=== PATIENT | female | born 1990 | race Caucasian/White ===

== ENCOUNTER 2016-12-20 17:08 | Emergency (ER) | payer OTHER ==
[~2016-12-20] VITALS: Ht 165.1 cm; Wt 60.0 kg
[2016-12-20 17:13] VITALS: BP 135/92; PULSE 81; RESP 16; TEMP 98; O2SAT 100
[2016-12-20 17:29] LABS: BLOOD, URINE TRACE (NEG); GLUCOSE,URINE NEG (NEG); KETONE, URINE 40 mg/dL (NEG); NITRITE,URINE NEG (NEG)
[2016-12-20 17:33] LABS: METHOD OF COLLECTION CLEAN CATCH; RBC, URINE 0-3 /hpf (0-3); SQUAMOUS EPITHELIAL CELL URINE 0-5 /hpf (0-5); URINE COLOR YELLOW (YELLW/STRAW)
[2016-12-20 17:34] LABS: COMMENT (UR) CULT NOT INDICATED; CULTURE IF INDICATED CULT NOT INDICATED
--- NOTE | 2016-12-20 18:36 | PD ---
HPI Chief Complaint: Related Problem Time Seen by Provider: 17:59 Travel History International Travel<30 days: No Contact w/Intl Traveler<30days: No Traveled to known affect area: No History of Present Illness HPI 24yo F with PMH of asthma presents to the ED with c/o vaginal spotting since last night. Pt is 6weeks 5 day as per LMP of 11/03/16 and has positive home test 5 days ago. States she has intermittent cramps but denies any abdominal pain. States she feels intermittent tugging sensation on right side but not really pain. Denies any fever, chest pain, sob, n/v, back pain, urinary complaints. Has whitish vaginal discharge. PFSH Past Medical History Asthma: Yes ?: LMP: 11/03/16 : 1 Para: 0 Miscarriage: 0 : 0 Past Surgical History Surgical History: No Previous Surgery Social History Alcohol Use: Yes (SOCIALLY) Tobacco Use: No Substance Use: No Allergies-Medications (Allergen,Severity, Reaction): Coded Allergies: No Known Allergies (Unverified , 12/20/16) Reported Meds & Prescriptions Reported Meds & Active Scripts Active No Active Prescriptions or Reported Medications Review of Systems Except as stated in HPI: all other systems reviewed are Neg Physical Exam Narrative GENERAL: 26yo F not in distress. SKIN: Warm and dry. HEAD: Atraumatic. Normocephalic. NECK: Trachea midline. No JVD. CARDIOVASCULAR: Regular rate and rhythm. No murmur appreciated. RESPIRATORY: No accessory muscle use. Clear to auscultation. Breath sounds equal bilaterally. GASTROINTESTINAL: Abdomen soft, non-tender, nondistended. No rebound tenderness or guarding. PELVIC: BACK: No CVA tenderness bilaterally. MUSCULOSKELETAL: No obvious deformities. No clubbing. No cyanosis. No edema. NEUROLOGICAL: Awake and alert. No obvious cranial nerve deficits. Motor grossly within normal limits. Normal speech. PSYCHIATRIC: Appropriate mood and affect; insight and judgment normal. Data Data Last Documented VS Vital Signs Date Time Temp Pulse Resp B/P Pulse Ox O2 Delivery O2 Flow Rate FiO2 12/20/16 17:13 98.0 81 16 135/92 100 Orders Urinalysis - C+S If Indicated (12/20/16 17:20) Beta Hcg (Quant/Titer) (12/20/16 18:06) Complete Blood Count With Diff (3/11/17 18:06) Basic Metabolic Panel (Bmp) (12/20/16 18:06) Gc And Chlamydia Pcr (12/20/16 18:06) Wet Prep Profile (12/20/16 18:06) Type And Screen (12/20/16 18:13) Prothrombin Time / Inr (Pt) (12/20/16 18:13) Act Partial Throm Time (Ptt) (12/20/16 18:13) Ed Poc Ultrasound (12/20/16 ) Us Pelvis (Ques Pr/Ect)W Trans (12/20/16 ) Labs Laboratory Tests Test 12/20/16 12/20/16 12/20/16 17:15 18:48 19:20 Urine Collection Type CLEAN CATCH Urine Color YELLOW Urine Turbidity CLEAR Urine pH 6.0 Urine Specific [place] 1.015 Urine Protein NEG mg/dL Urine Glucose (UA) NEG mg/dL Urine Ketones 40 mg/dL Urine Occult Blood TRACE Urine Nitrite NEG Urine Bilirubin NEG Urine Leukocyte Esterase NEG Urine RBC 0-3 /hpf Urine Squamous Epithelial 0-5 /hpf Cells Microscopic Urinalysis Comment CULT NOT INDICATED White Blood Count 8.8 TH/MM3 Red Blood Count 3.91 MIL/MM3 Hemoglobin 12.2 GM/DL Hematocrit 35.8 % Mean Corpuscular Volume 91.7 FL Mean Corpuscular Hemoglobin 31.3 PG Mean Corpuscular Hemoglobin 34.1 % Concent Red Cell Distribution Width 13.2 % Platelet Count 220 TH/MM3 Mean Platelet Volume 8.7 FL Neutrophils (%) (Auto) 68.0 % Lymphocytes (%) (Auto) 19.9 % Monocytes (%) (Auto) 8.4 % Eosinophils (%) (Auto) 1.2 % Basophils (%) (Auto) 2.5 % Neutrophils # (Auto) 6.1 TH/MM3 Lymphocytes # (Auto) 1.7 TH/MM3 Monocytes # (Auto) 0.7 TH/MM3 Eosinophils # (Auto) 0.1 TH/MM3 Basophils # (Auto) 0.2 TH/MM3 CBC Comment DIFF FINAL Differential Comment Prothrombin Time 10.7 SEC Prothromb Time International 1.0 RATIO Ratio Activated Partial 22.0 SEC Thromboplast Time Sodium Level 140 MEQ/L Potassium Level 3.8 MEQ/L Chloride Level 105 MEQ/L Carbon Dioxide Level 21.1 MEQ/L Anion Gap 14 MEQ/L Blood Urea Nitrogen 9 MG/DL Creatinine 0.58 MG/DL Estimat Glomerular Filtration 124 ML/MIN Rate Random Glucose 89 MG/DL Calcium Level 8.3 MG/DL Human Chorionic Gonadotropin, 3828 MIU/ML Quant Blood Type A POSITIVE Antibody Screen NEGATIVE Blood Bank Comment Clue Cells (Wet Prep) NONE SEEN Vaginal Trichomonas (Wet Prep) NONE SEEN Vaginal Yeast (Wet Prep) NONE SEEN MDM Medical Decision Making Medical Screen Exam Complete: Yes Emergency Medical Condition: Yes Interpretation(s) Laboratory Tests Test 12/20/16 12/20/16 12/20/16 17:15 18:48 19:20 Urine Collection Type CLEAN CATCH Urine Color YELLOW (YELLW/STRAW) Urine Turbidity CLEAR (CLEAR) Urine pH 6.0 (5.0-8.5) Urine Specific [place] 1.015 (1.002-1.035) Urine Protein NEG mg/dL (NEG-TRACE) Urine Glucose (UA) NEG mg/dL (NEG) Urine Ketones 40 mg/dL (NEG) Urine Occult Blood TRACE (NEG) Urine Nitrite NEG (NEG) Urine Bilirubin NEG (NEG) Urine Leukocyte Esterase NEG (NEG) Urine RBC 0-3 /hpf (0-3) Urine Squamous Epithelial 0-5 /hpf (0-5) Cells Microscopic Urinalysis Comment CULT NOT INDICATED White Blood Count 8.8 TH/MM3 (4.0-11.0) Red Blood Count 3.91 MIL/MM3 (4.00-5.30) Hemoglobin 12.2 GM/DL (11.6-15.3) Hematocrit 35.8 % (35.0-46.0) Mean Corpuscular Volume 91.7 FL (80.0-100.0) Mean Corpuscular Hemoglobin 31.3 PG (27.0-34.0) Mean Corpuscular Hemoglobin 34.1 % Concent (32.0-36.0) Red Cell Distribution Width 13.2 % (11.6-17.2) Platelet Count 220 TH/MM3 (150-450) Mean Platelet Volume 8.7 FL (7.0-11.0) Neutrophils (%) (Auto) 68.0 % (16.0-70.0) Lymphocytes (%) (Auto) 19.9 % (9.0-44.0) Monocytes (%) (Auto) 8.4 % (0.0-8.0) Eosinophils (%) (Auto) 1.2 % (0.0-4.0) Basophils (%) (Auto) 2.5 % (0.0-2.0) Neutrophils # (Auto) 6.1 TH/MM3 (1.8-7.7) Lymphocytes # (Auto) 1.7 TH/MM3 (1.0-4.8) Monocytes # (Auto) 0.7 TH/MM3 (0-0.9) Eosinophils # (Auto) 0.1 TH/MM3 (0-0.4) Basophils # (Auto) 0.2 TH/MM3 (0-0.2) CBC Comment DIFF FINAL Differential Comment Prothrombin Time 10.7 SEC (9.8-11.6) Prothromb Time International 1.0 RATIO Ratio Activated Partial 22.0 SEC Thromboplast Time (24.3-30.1) Sodium Level 140 MEQ/L (136-145) Potassium Level 3.8 MEQ/L (3.5-5.1) Chloride Level 105 MEQ/L (98-107) Carbon Dioxide Level 21.1 MEQ/L (21.0-32.0) Anion Gap 14 MEQ/L (5-15) Blood Urea Nitrogen 9 MG/DL (7-18) Creatinine 0.58 MG/DL (0.50-1.00) Estimat Glomerular Filtration 124 ML/MIN Rate (>89) Random Glucose 89 MG/DL (74-106) Calcium Level 8.3 MG/DL (8.5-10.1) Human Chorionic Gonadotropin, 3828 MIU/ML Quant (0-5) Blood Type A POSITIVE Antibody Screen NEGATIVE Blood Bank Comment Clue Cells (Wet Prep) NONE SEEN (NONE) Vaginal Trichomonas (Wet Prep) NONE SEEN (NONE) Vaginal Yeast (Wet Prep) NONE SEEN (NONE) Differential Diagnosis Threatened vs. subchorionic hemorrhage vs. ectopic Narrative Course 26yo F with vaginal bleeding and early . Labs reviewed, no leukocytosis. H/H stable. [facility] [id number]. I did a bedside transabdominal US and could not see a clear gestational sac so official transvaginal US was ordered. US showed no IUP. There is a potentially early ectopic of right ovary. [facility] surveillance and follow up ultrasound recommended. Discussed with Dr. Jonathan Horner, OB hospitalist and he states that she can follow up with him in 48 hours. Will write prescription for bHCG in 2 days. Blood type is A+. UA trace blood. Culture not indicated. Return precautions given. Diagnosis Primary Impression: Ectopic Qualified Code: O00.20 - Ovarian without intrauterine Referrals: Jonathan Horner MD 2 days Possible early ectopic, need repeat bHCG and US and follow up with OBGYN in 48 hours. Patient Instructions: General Instructions Departure Forms: Tests/Procedures Additional Instructions: Please follow up with Dr. Horner in 48 hours. Please go to lab for repeat bHCG in 2 days. Return to the ED if you have any abdominal pain, vomiting or any other concerning symptoms. Med/Other Pt SpecificInfo: Prescription(s) given Scripts Acetaminophen (Acetaminophen Extra Strength)500 Mg [id number] Mg PO Q6H PRN (PAIN SCALE 1 TO 4) #20 TAB Ref 0 Prov:Stefania Barba DO 12/20/16 Disposition: 01 DISCHARGE HOME Condition: Stable Stefania Barba DO Dec 20, 2016 18:36
[2016-12-20 19:05] LABS: AUTOMATED NEUTROPHIL # 6.1 TH/MM3 (1.8-7.7); BASOPHIL # 0.2 TH/MM3 (0-0.2); BASOPHIL % 2.5 % (0.0-2.0); EOSINOPHIL # 0.1 TH/MM3 (0-0.4); EOSINOPHIL % 1.2 % (0.0-4.0); HEMATOCRIT 35.8 % (35.0-46.0); HEMO FLAGS DIFF FINAL; LYMPH % 19.9 % (9.0-44.0); LYMPHOCYTE # 1.7 TH/MM3 (1.0-4.8); MEAN CELL VOLUME 91.7 FL (80.0-100.0); MEAN CORPUSCULAR HEMOGLOBIN 31.3 PG (27.0-34.0); MEAN CORPUSCULAR HGB CONC 34.1 % (32.0-36.0); MONO % 8.4 % (0.0-8.0); PLATELET COUNT 220 TH/MM3 (150-450); RED BLOOD COUNT 3.91 MIL/MM3 (4.00-5.30); RED CELL DISTRIBUTION WIDTH 13.2 % (11.6-17.2); WHITE BLOOD COUNT 8.8 TH/MM3 (4.0-11.0)
[2016-12-20 19:15] LABS: BICARBONATE 21.1 MEQ/L (21.0-32.0)
[2016-12-20 19:17] LABS: PROTHROMBIN TIME - PATIENT 10.7 SEC (9.8-11.6)
[2016-12-20 19:24] LABS: POTASSIUM 3.8 MEQ/L (3.5-5.1)
--- NOTE | 2016-12-20 21:49 | RADHPO ---
EXAM DATE/TIME: 12/20/2016 20:05 [place] COMPARISON: No previous studies available for comparison. INDICATIONS : Vaginal spotting during . LAB(S): Beta-hC MEDICAL HISTORY : . Asthma. SURGICAL HISTORY : None. ENCOUNTER: Initial ACUITY: 1 day PAIN SCORE: 1/10 LOCATION: Right pelvis MEASUREMENTS: UTERUS: 7.8 x 5.4 x 5.8 cm ENDOMETRIAL STRIPE: 16 mm RIGHT OVARY: 3.6 x 2.6 x 3.1 cm LEFT OVARY: 3.4 x 1.6 x 3.4 cm FINDINGS: Nothing typical of a gestational sac, yolk sac or pole of the uterus. Multiple scattered sub-5 mm submucosal cysts are seen in the endometrium. The endometrium is thickened. Small fluid collection seen in the right ovary measures about 7.5 mm in size and could be an early ge stational sac. There is a internal reflection suggesting a possible yolk sac. However, no perceptible pole. There is a complex 24 mm mass of the right ovary as well that is probably a corpus lutea l cyst. Subcentimeter cysts are seen of the left ovary. Small free fluid containing floating debris seen in the pelvic cul-de-sac. CONCLUSION: 1. No IUP seen. There is a potential early ectopic of the right ovary; the appearance sugge sts a small gestational sac with yolk sac but I don't see a pole.. Beta-hCG surveillance and fo llowup ultrasound recommended. 2. Probably a corpus luteal cyst of the right ovary as well. 3. Small free fluid and debris in the pelvic cul-de-sac. Jonathan Medrano MD on December 20, 2016 at 21:42 Board Certified Radiologist. This report was verified electronically.
[2016-12-20 22:01] VITALS: BP 125/66; PULSE 94; RESP 16; O2SAT 100
[2016-12-20] MEDS ORDERED: ACET500T36 PO (22:16)
[2016-12-20] MEDS ORDERED: ACETAMINOPHEN 325 MG TAB PO ONE (22:30)
[2016-12-21 04:05] LABS: CHLAMYDIA PCR NOT DETECTED (NOT DETECT); NEISSERIA PCR NOT DETECTED (NOT DETECT)
== END 2016-12-20 22:39 | disposition home or self-care (01) ==
LOC: PHED 17:08
DX: O00.20 Ovarian pregnancy without intrauterine pregnancy (principal); Z3A.01 Less than 8 weeks gestation of pregnancy
CPT/HCPCS: 76700; 76817; 80048; 81001; 84702; 85025; 85610; 85730; 86850; 86900; 86901; 87210; 87491; 87591

== ENCOUNTER 2016-12-22 15:49 | Emergency (ER) | payer OTHER ==
[~2016-12-22] VITALS: Ht 165.1 cm; Wt 60.0 kg
[~2016-12-22 15:49] MED LIST: ACET500T36 PO
[2016-12-22 15:51] VITALS: BP 120/78; PULSE 79; RESP 18; TEMP 97.9; O2SAT 98
--- NOTE | 2016-12-22 18:23 | PD ---
HPI Chief Complaint: Online Banking Specialist Problem/Complaint Time Seen by Provider: 18:20 Travel History International Travel<30 days: No Contact w/Intl Traveler<30days: No Traveled to known affect area: No History of Present Illness HPI Patient is a 26-year-old female presenting to the emergency department for an injection of methotrexate. Patient was seen and evaluated in the emergency department on 12/20/16 and was diagnosed with a suspected ectopic . She presented to her DEGREE CLERK this morning Dr. Hendrickson who confirmed the was ectopic to an additional ultrasound as well as a pelvic exam. He wrote her a prescription to bring to emergency department for methotrexate injection. Patient denies any abdominal pain currently. She states that she had some abdominal pain last night. PFSH Past Medical History Asthma: Yes Respiratory: Yes (ASTHMA) ?: Not : 1 Para: 0 Miscarriage: 0 : 0 Social History Alcohol Use: Yes (SOCIALLY) Tobacco Use: No Substance Use: No Allergies-Medications (Allergen,Severity, Reaction): Coded Allergies: No Known Allergies (Unverified , 12/22/16) Reported Meds & Prescriptions Reported Meds & Active Scripts Active Acetaminophen Extra Strength (Acetaminophen) 500 Mg Tab 500 Mg PO Q6H PRN Review of Systems Except as stated in HPI: all other systems reviewed are Neg Physical Exam Narrative GENERAL: Well-developed, well-nourished, alert female. Resting comfortably in no acute distress. SKIN: Warm and dry. HEAD: Normocephalic. EYES: No scleral icterus. No injection or drainage. NECK: Supple, trachea midline. No JVD or lymphadenopathy. CARDIOVASCULAR: Regular rate and rhythm without murmurs, gallops, or rubs. RESPIRATORY: Breath sounds equal bilaterally. No accessory muscle use. GASTROINTESTINAL: Abdomen soft, non-tender, nondistended. MUSCULOSKELETAL: No cyanosis, or edema. BACK: Nontender without obvious deformity. No CVA tenderness. Data Data Last Documented VS Vital Signs Date Time Temp Pulse Resp B/P Pulse Ox O2 Delivery O2 Flow Rate FiO2 12/22/16 15:51 97.9 79 18 120/78 98 Orders Basic Metabolic Panel (Bmp) (12/22/16 18:18) Beta Hcg (Quant/Titer) (12/22/16 18:18) Methohexital Inj (Brevital Sodium Inj) (12/22/16 20:15) Labs Laboratory Tests Test 12/22/16 18:28 Sodium Level 137 MEQ/L Potassium Level 3.6 MEQ/L Chloride Level 104 MEQ/L Carbon Dioxide Level 25.2 MEQ/L Anion Gap 8 MEQ/L Blood Urea Nitrogen 13 MG/DL Creatinine 0.72 MG/DL Estimat Glomerular Filtration 96 ML/MIN Rate Random Glucose 122 MG/DL Calcium Level 8.5 MG/DL Human Chorionic Gonadotropin, 5409 MIU/ML Quant MDM Medical Decision Making Medical Screen Exam Complete: Yes Emergency Medical Condition: Yes Interpretation(s) Vital Signs Date Time Temp Pulse Resp B/P Pulse Ox O2 Delivery O2 Flow Rate FiO2 12/22/16 15:51 97.9 79 18 120/78 98 Differential Diagnosis Ectopic versus ruptured ectopic versus other Narrative Course Patient is a 26-year-old female sent by her DEGREE CLERK Dr. Hendrickson for an injection of methotrexate due to an ectopic . Patient is approximately 6 weeks . Per patient the was confirmed to be ectopic and Dr. Hendrickson office today. We'll check BMP and hCG level. Patient will be placed in a medical bed when available and care will be assumed by the provider. Janneth Sanchez Dec 22, 2016 18:23
[2016-12-22 19:27] LABS: BICARBONATE 25.2 MEQ/L (21.0-32.0); POTASSIUM 3.6 MEQ/L (3.5-5.1)
[2016-12-22] MEDS ORDERED: [UNRECOGNIZED DRUG - OTHER] IM ONE (20:15)
[2016-12-22 20:45] VITALS: BP 137/72; PULSE 82; RESP 18; O2SAT 99
[2016-12-22] MEDS ORDERED: SODIUM CHLOR 0.9% 1000 ML INJ 1,000 ML IV SCH ×2 (20:47)
[2016-12-22 20:49] VITALS: O2SAT 99
--- NOTE | 2016-12-22 20:52 | PD ---
Data Data Last Documented VS Vital Signs Date Time Temp Pulse Resp B/P Pulse Ox O2 Delivery O2 Flow Rate FiO2 12/22/16 21:02 84 16 150/79 99 Room Air 12/22/16 15:51 97.9 Orders Basic Metabolic Panel (Bmp) (12/22/16 18:18) Beta Hcg (Quant/Titer) (12/22/16 18:18) Methohexital Inj (Brevital Sodium Inj) (12/22/16 20:15) Ecg Monitoring (12/22/16 20:47) Iv Access Insert/Monitor (12/22/16 20:47) Oximetry (12/22/16 20:47) Sodium Chloride 0.9% Flush (Ns Flush) (12/22/16 21:00) Sodium Chlor 0.9% 1000 Ml Inj (Ns 1000 M (12/22/16 20:47) Iv Access Insert/Monitor (12/22/16 20:47) Sodium Chlor 0.9% 1000 Ml Inj (Ns 1000 M (12/22/16 20:47) Methotrexate Pf Inj (Methotrexate Pf Inj (12/22/16 22:12) Labs Laboratory Tests Test 12/22/16 18:28 Sodium Level 137 MEQ/L Potassium Level 3.6 MEQ/L Chloride Level 104 MEQ/L Carbon Dioxide Level 25.2 MEQ/L Anion Gap 8 MEQ/L Blood Urea Nitrogen 13 MG/DL Creatinine 0.72 MG/DL Estimat Glomerular Filtration 96 ML/MIN Rate Random Glucose 122 MG/DL Calcium Level 8.5 MG/DL Human Chorionic Gonadotropin, 5409 MIU/ML Quant MDM Medical Record Reviewed: Yes Supervised Visit with ANTONIO: Yes Narrative Course I, Dr. Robins, have reviewed the advance practice practitioner's documentation and am in agreement, met with the patient face to face, made the diagnosis, and the medical decision making was done by me. *My assessment and Findings: The patient's 26 years old and was sent here by Dr. Hendrickson to undergoing methotrexate injection for ectopic . The dosing was discussed with Dr. Grajeda. Case was managed by ROLO Esteban. Accidentally methohexital the barbiturate was administered IM. Fortunately, ROLO Esteban recognized the mistake immediately however the patient did receive 75mg IM dose. Upon notification of the event we initiated cardiopulmonary monitoring and established an IV and started on IV fluids. Patient was reassessed about 10-15 minutes after the injection. No symptomology consistent with barbiturate exposure seen at that time. Respiratory therapy immediately notified. Case discussed with anesthesiologist on service who is quite familiar with methohexital and anticipates an uneventful ER course. Patient was quite gracious with our discussion of the error and readily accepted the apologies. We will monitor here for 3 hours, double the lower end of half-life on record in up-to-date online. Reassessed at 935pm. VS normal. Pt states she feels normal. She appears comfortable and in no distress. No hemodynamic instability or change in vital signs is observed throughout the patient's ER stay. Anesthesiology evaluation appreciated. Return precautions were discussed. The patient will go home with the and mother. She did receive the appropriate dose of methotrexate prior to discharge. Follow up with Dr Stroud's service. Cachorro Robins MD Dec 22, 2016 20:52
[2016-12-22] MEDS ORDERED: SODIUM CHLORIDE 0.9% FLUSH 5 ML FLUSH IVF PRN (21:00)
[2016-12-22 21:02] VITALS: BP 150/79; PULSE 84; RESP 16; O2SAT 99
[2016-12-22] MEDS ORDERED: METHOTREXATE SOD PF 50 MG/2 ML VIAL IM STA (22:12)
--- NOTE | 2016-12-22 23:15 | PD ---
Physical Exam Date Seen by Provider: Dec 22, 2016 Time Seen by Provider: 23:04 Narrative 26-year-old female that presents to the ED for evaluation of ectopic . Patient was told by her doctor Dr. Horner to come here and get a shot of methotrexate IM. Patient has a prescription for this with Dr. Hampton signature. Case was signed out to me by Janneth JOHNSON Data Data Last Documented VS Vital Signs Date Time Temp Pulse Resp B/P Pulse Ox O2 Delivery O2 Flow Rate FiO2 12/22/16 21:02 84 16 150/79 99 Room Air 12/22/16 15:51 97.9 Orders Basic Metabolic Panel (Bmp) (12/22/16 18:18) Beta Hcg (Quant/Titer) (12/22/16 18:18) Methohexital Inj (Brevital Sodium Inj) (12/22/16 20:15) Ecg Monitoring (12/22/16 20:47) Iv Access Insert/Monitor (12/22/16 20:47) Oximetry (12/22/16 20:47) Sodium Chloride 0.9% Flush (Ns Flush) (12/22/16 21:00) Sodium Chlor 0.9% 1000 Ml Inj (Ns 1000 M (12/22/16 20:47) Iv Access Insert/Monitor (12/22/16 20:47) Sodium Chlor 0.9% 1000 Ml Inj (Ns 1000 M (12/22/16 20:47) Methotrexate Pf Inj (Methotrexate Pf Inj (12/22/16 22:12) Labs Laboratory Tests Test 12/22/16 18:28 Sodium Level 137 MEQ/L Potassium Level 3.6 MEQ/L Chloride Level 104 MEQ/L Carbon Dioxide Level 25.2 MEQ/L Anion Gap 8 MEQ/L Blood Urea Nitrogen 13 MG/DL Creatinine 0.72 MG/DL Estimat Glomerular Filtration 96 ML/MIN Rate Random Glucose 122 MG/DL Calcium Level 8.5 MG/DL Human Chorionic Gonadotropin, 5409 MIU/ML Quant [facility] Medical Record Reviewed: Yes Supervised Visit with ANTONIO: No Interpretation(s) Beta of 5000 BMP Diagram 12/22/16 18:28 Differential Diagnosis Ectopic versus medication administration versus Narrative Course 26-year-old female that presents to the ED for evaluation of ectopic . Patient was evaluated by Janneth JOHNSON. Please refer to her note. Case was signed out to me pending labs and administration of methotrexate. Case was discussed with Dr. Worthington for ENTEROSTOMAL THERAPY NURSE who works on the same group as Dr. Hampton. I asked for clarification of the dose of the medication and if this is something that they patient will require. She states that we can give the 70 mg methotrexate IM dose. Order was placed for the medication. However around 21 :00 I realized that the medication ordered was Methohexital 70 mg IM and not methotrexate 70 mg IM. I immediately notified the nurse of the error, unfortunately dose had already been given to her on her right shoulder. I notified my attending Dr Robins immediately of the error I had made and he and myself immediately evaluated the patient and we inform patient and family of what had transpired. We apologized for the inconvenience and immediately called anesthesiology as the medication given is part of anesthesia. Anesthesiologist came and evaluated the patient and he stated that likely patient will have minimal to no symptoms. He recommends to observe patient for 2 -3 hours. If no symptoms patient can be safely discharged. IV and monitoring with clinical support tech initiated. Patient was observed by me and attending multiple times for the past 2 hours with no signs of acute distress or symptoms other than sore shoulder. I personally apologized for the error and reassure patient of situation. Patient was given dose of methotrexate 70 mg IM for the ectopic . This medication was double checked by me and attending and ED nurse. Proper dose and medication was given. Patient was monitored for 30 minutes with no obvious side effect other than small discomfort to the abdomen. Patient was given copies of labs and counceled on expected course. She agrees and understands. All questions were answered to the best of my ability. My attending Dr Robins agrees to discharge. Patient was discharged with instructions to come back to ED if anything worsens. F/u with OBGYN. Diagnosis Primary Impression: Ectopic Qualified Code: O00.10 - Tubal without intrauterine Patient Instructions: General Instructions, Narcotic given in the ED Additional Instruction: F/u up with ENTEROSTOMAL THERAPY NURSE. See ED if any signs of infection, fever, worsening pain. Take Motrin or Tylenol for pain as needed. Ice or warm compresses. Some bleeding is to be expected in the next couple of days. Med/Other Pt SpecificInfo: No Meds Exist/No RX given Disposition: 01 DISCHARGE HOME Condition: Stable Sebastian Esteban Dec 22, 2016 23:14
== END 2016-12-22 23:46 | disposition home or self-care (01) ==
LOC: NEPC 15:49
DX: O00.90 Unspecified ectopic pregnancy without intrauterine pregnancy (principal); J45.909 Unspecified asthma, uncomplicated
CPT/HCPCS: 80048; 84702; 96360; 96372; 99282; J7030; J9250